=== PATIENT | male | born 1955 | race Caucasian/White ===

== ENCOUNTER 2017-02-23 13:50 | Emergency (ER) | payer OTHER ==
[~2017-02-23] VITALS: Ht 172.7 cm; Wt 78.5 kg
[2017-02-23] MEDS ORDERED: ALBUTEROL/IPRATROPIUM 2.5MG/0.5MG, 3 ML NPPB ONE (14:30)
[2017-02-23] MEDS ORDERED: ALBUTEROL/IPRATROPIUM 2.5MG/0.5MG, 3 ML ONE (14:37)
[2017-02-23 15:02] VITALS: BP 114/64
== END 2017-02-23 15:15 | disposition home or self-care (01) ==
LOC: ED 15:00
DX: J15.9 Unspecified bacterial pneumonia (principal); J45.909 Unspecified asthma, uncomplicated; Z86.711 Personal history of pulmonary embolism; Z87.891 Personal history of nicotine dependence; Z86.718 Personal history of other venous thrombosis and embolism
CPT/HCPCS: 71010; 93005; 94640; 99284; J7512; J7620

== ENCOUNTER 2017-04-15 16:50 | Emergency (ER) | payer OTHER ==
[~2017-04-15] VITALS: Ht 172.7 cm; Wt 81.0 kg
[2017-04-15 17:14] VITALS: BP 116/71
== END 2017-04-15 18:26 | disposition home or self-care (01) ==
LOC: ED 18:15
DX: S43.51XA Sprain of right acromioclavicular joint, initial encounter (principal); S43.421A Sprain of right rotator cuff capsule, initial encounter; M25.512 Pain in left shoulder; W00.0XXA Fall on same level due to ice and snow, initial encounter; Y93.89 Activity, other specified; Y92.89 Other specified places as the place of occurrence of the external cause; Y99.8 Other external cause status
CPT/HCPCS: 99284